=== PATIENT | female | born 2000 | race Caucasian/White ===

== ENCOUNTER 2024-08-08 10:11 | Outpatient (CLI) | payer OTHER, SELFPAY | END 2024-08-08 10:12 | disposition home or self-care (01) | PROVIDERS: Visit Provider Registered Nurse | DX: Z34.91 Encounter for supervision of normal pregnancy, unspecified, first trimester (principal); Z3A.08 8 weeks gestation of pregnancy | CPT/HCPCS: 76817; 86850; 86900; 86901 ==

== ENCOUNTER 2024-08-22 10:16 | Outpatient (CLI) | payer OTHER, SELFPAY ==
--- NOTE | 2024-08-22 10:15 | CRLHL7_ITS ---
For Patients: As a result of the Cures Act, medical imaging exams and procedure reports are released immediately into your electronic medical record. You may view this report before your referring provider. If you have questions, please contact your health care provider. HISTORY: Dating and viability follow-up. COMPARISON: Early OB ultrasound from 08/08/2024 TECHNIQUE: Transvaginal ultrasound examination of the early was performed. FINDINGS: A single intrauterine gestational sac is seen with a pole. The crown-rump length measurement of 1.7 cm gives an estimated gestational age of 8 weeks 1 day with an estimated date of delivery of 04/02/2025. This correlates well with the previous ultrasound. There is a small fluid collection located inferior to the gestational sac consistent with a small subchorionic hemorrhage, measuring 1.0 x 0.4 x 0.3 centimeters. Regular cardiac activity is seen at 159 BPM. There is no sign of free fluid in the pelvis. There is a thick-walled cyst in the right ovary consistent with a corpus luteum cyst of . The left ovary can not be identified. IMPRESSION: 1. Single intrauterine gestation with estimated age of 8 weeks 1 day. 2. Regular cardiac activity is seen. 3. There has been appropriate interval growth. Dictated by Kian Berger MD @ 08/22/2024 11:25:46 PM (Electronically Signed)
== END 2024-08-22 10:17 | disposition home or self-care (01) ==
LOC: US 10:17
PROVIDERS: Visit Provider Registered Nurse
DX: Z34.91 Encounter for supervision of normal pregnancy, unspecified, first trimester (principal); Z3A.08 8 weeks gestation of pregnancy
CPT/HCPCS: 76817; 86592; 86703; 86704; 86706; 86762; 86787; 86803; 87086; 87340; 87491; 87591

== ENCOUNTER 2024-10-22 10:03 | Outpatient (CLI) | payer OTHER, SELFPAY ==
--- NOTE | 2024-10-22 11:30 | CRLHL7_ITS ---
For Patients: As a result of the Century Cures Act, medical imaging exams and procedure reports are released immediately into your electronic medical record. You may view this report before your referring provider. If you have questions, please contact your health care provider. INDICATION: History of labor, cervix check COMPARISON: 08/22/2024 TECHNIQUE: Real-time cannon-scale imaging of the pelvis was performed. Transabdominal and transvaginal technique. FINDINGS: Cervix is closed and measures 4.7 cm. No funneling or endocervical fluid. position breech. Posterior placenta. heart rate 142 beats per minute. IMPRESSION: Cervix is closed and measures 4.7 cm. Dictated by Lucian Subramanian MD @ 10/22/2024 12:20:40 PM (Electronically Signed)
== END 2024-10-22 10:04 | disposition home or self-care (01) ==
PROVIDERS: PCP Family Medicine; Visit Provider Obstetrics & Gynecology
DX: Q24.9 Congenital malformation of heart, unspecified (principal); I51.7 Cardiomegaly; Q25.1 Coarctation of aorta; O09.899 Supervision of other high risk pregnancies, unspecified trimester
CPT/HCPCS: 76815; 76817; 93306

== ENCOUNTER 2024-11-05 09:56 | Outpatient (CLI) | payer OTHER, SELFPAY ==
--- NOTE | 2024-11-05 10:15 | CRLHL7_ITS ---
For Patients: As a result of the Century Cures Act, medical imaging exams and procedure reports are released immediately into your electronic medical record. You may view this report before your referring provider. If you have questions, please contact your health care provider. OBSTETRICAL ULTRASOUND FOLLOW-UP INDICATION: Supervision of high-risk . History of labor. 5, para 2. AB: 1. Ectopic: 1. RICKY by US: 04/02/2025 Gestational age: 18 weeks 6 days GESTATION: Single COMPARISON: 10/22/2024 TECHNIQUE: Real-time cannon-scale imaging of the pelvis was performed transabdominal and transvaginal. FINDINGS: Cervix: Visualized, 4.0 cm positioning: Vertex Placenta technique: Transabdominal Placenta position: Posterior heart rate: 144 bpm IMPRESSION: Transvaginal imaging of the cervix shows a closed cervix measuring 4.0 cm without funneling. LUCIAN BUSTOS M.D. Diagnostic Radiologist [email or web address] Transcribed: 12:[address]/Dictated by: Lucian Bustos MD @ 11/05/2024 11:29:00 AM (Electronically Signed)
== END 2024-11-05 09:57 | disposition home or self-care (01) ==
LOC: US 09:57
PROVIDERS: PCP Family Medicine; Visit Provider Obstetrics & Gynecology
DX: O09.892 Supervision of other high risk pregnancies, second trimester (principal); Z3A.18 18 weeks gestation of pregnancy
CPT/HCPCS: 76815; 76817

== ENCOUNTER 2024-12-04 13:45 | Outpatient (CLI) | payer OTHER, SELFPAY | END 2024-12-04 13:46 | disposition home or self-care (01) | LOC: US 13:46 | PROVIDERS: PCP Family Medicine; Visit Provider Obstetrics & Gynecology | DX: O09.892 Supervision of other high risk pregnancies, second trimester (principal); Z3A.23 23 weeks gestation of pregnancy | CPT/HCPCS: 76816; 76817 ==

== ENCOUNTER 2025-01-09 11:43 | Outpatient (CLI) | payer OTHER, SELFPAY | END 2025-01-09 11:44 | disposition home or self-care (01) | LOC: NFLDREF 01-11 07:34 | PROVIDERS: PCP Family Medicine; Referring Provider Family Medicine; Visit Provider Obstetrics & Gynecology | DX: Z34.83 Encounter for supervision of other normal pregnancy, third trimester (principal) | CPT/HCPCS: 86592 ==